=== PATIENT | female | born 1965 | race Hispanic/Latino ===

== ENCOUNTER 2020-04-12 09:04 | Emergency (ER) | payer OTHER ==
[2020-04-12] MEDS ORDERED: LIDOCAINE HCL 1% 20 ML VIAL ONE (09:37)
[2020-04-12] MEDS ORDERED: CEFTRIAXONE SODIUM 1 GM ONE (09:37)
== END 2020-04-12 10:41 | disposition home or self-care (01) ==
LOC: EDH 09:04
DX: J02.9 Acute pharyngitis, unspecified (principal); Z20.828 Contact with and (suspected) exposure to other viral communicable diseases; E11.9 Type 2 diabetes mellitus without complications; I10 Essential (primary) hypertension; E78.00 Pure hypercholesterolemia, unspecified
CPT/HCPCS: 87426; 87880; 96372; 99283; J0696; U0003